=== PATIENT | female | born 1955 ===

== ENCOUNTER 2016-09-10 09:36 | Outpatient (CLI) | payer OTHER ==
--- NOTE | 2016-09-10 14:52 | Mammography Report ---
BILATERAL DIGITAL SCREENING MAMMOGRAM with CAD: 09/10/16 CLINICAL: Routine screening. COMPARISON:None available. However, a prior mammogram was apparently done at [facility] in 2014. FINDINGS: The breasts are heterogeneously dense, which may obscure small masses. Right asymmetries require comparison with the prior mammogram or additional imaging of the right breast. The left breast is negative. IMPRESSION: Right asymmetries requiring further evaluation. BI-RADS CATEGORY: 0 -- Additional Evaluation Required RECOMMENDATION: Comparison with a previous mammogram. We will attempt to obtain a prior mammogram from [facility] in 2014. If we do not obtain a prior mammogram for comparison within 30 days, a revised report will be issued recommending a recall for additional imaging of the right breast. Please be advised that the patient should not schedule an appointment for return until adequate time (at least 2 weeks) has passed for us to obtain the prior mammogram. ACR BI-RADS MAMMOGRAPHIC CODES: 0 = Needs additional imaging evaluation; 1 = Negative; 2 = Benign; 3 = Probably benign; 4 = Suspicious; 5 = Malignant; 6 = Known biopsy-proven malignancy COMMENT: 1. Dense breast tissue, i.e., adenosis, fibrocystic changes, etc., may obscure an underlying neoplasm. 2. Approximately 10% of cancers are not detected with mammography. 3. A negative mammography report should not delay biopsy if a clinically suspicious mass is present. COMMENT: Patient follow-up letters are generated via our [employer] application.
== END 2016-09-10 09:37 | disposition home or self-care (01) ==
LOC: SPVWC 09:36
PROVIDERS: ATTEND Family Medicine
DX: Z12.31 Encounter for screening mammogram for malignant neoplasm of breast (principal)
CPT/HCPCS: 77067; G0202

== ENCOUNTER 2016-10-22 09:49 | Outpatient (CLI) | payer OTHER ==
--- NOTE | 2016-10-22 11:15 | Ultrasound Report ---
RIGHT DIGITAL DIAGNOSTIC MAMMOGRAM and RIGHT BREAST ULTRASOUND: 10/22/16 09:49:00 CLINICAL: Recalled for asymmetry. COMPARISON:09/10/16 screening FINDINGS: Lateralmedial and spot compression MLO views were performed. Near complete effacement of the previously described asymmetry and a subtle persistent asymmetry of the lateral view. Ultrasound of the right breast (including all four quadrants and the retroareolar area) was performed. A tiny cystic cluster at 12 o'clock 2 cm from the nipple measures 7 x 2 x 6 mm. A benign cyst at 5 o'clock 2 cm from the nipple measures 9 x 9 x 5 mm. A few mildly dilated ducts. IMPRESSION: Benign cysts. BI-RADS CATEGORY: 2 - - Benign RECOMMENDATION: Routine mammographic screening in one year. ACR BI-RADS MAMMOGRAPHIC CODES: 0 = Needs additional imaging evaluation; 1 = Negative; 2 = Benign; 3 = Probably benign; 4 = Suspicious; 5 = Malignant; 6 = Known biopsy-proven malignancy COMMENT: 1. Dense breast tissue, i.e., adenosis, fibrocystic changes, etc., may obscure an underlying neoplasm. 2. Approximately 10% of cancers are not detected with mammography. 3. A negative mammography report should not delay biopsy if a clinically suspicious mass is present. COMMENT: Patient follow-up letters are generated via our [employer] application.
== END 2016-10-22 09:50 | disposition home or self-care (01) ==
LOC: SPVWC 09:49
PROVIDERS: ATTEND Family Medicine
DX: N60.01 Solitary cyst of right breast (principal)
CPT/HCPCS: 76641; G0206

== ENCOUNTER 2017-12-31 12:41 | Outpatient (CLI) | payer OTHER ==
--- NOTE | 2017-12-31 14:34 | Mammography Report ---
BONE DEXA:12/31/17 12:41:00 CLINICAL: Postmenopausal. No comparison. TECHNIQUE: Two site bone DEXA performed on an Hologic scanner. FINDINGS: The average BMD of the lumbar spine L1-L4 is 0.874g/cm squared with a T-score of -2.5 and a Z-score of 0.9. The average BMD of the left hip is 0.839g/cm squared with a T-score of -1.2 and a Z-score of 0.4. IMPRESSION: 1. WHO classification: Osteoporosis with high fracture risk based on lumbar spine measurements. 2. WHO classification: Osteopenia with increased fracture risk based on left hip measurements. RECOMMENDATION: Clinical correlation and routine screening. DEFINITIONS: BMD = Bone Mineral Density T-score = BMD related to mean peak bone mass of young adult (mean expressed in Standard Deviation) Z-score = Age matched BMD expressed in SD World Health Organization (WHO) Diagnostic Criteria Normal T-score > -1 SD Osteopenia T-score between -1 and -2.4 SD Osteoporosis T-score -2.5 SD or below NOTE: BMD is not the only risk factor for fracture. One should also consider factors such as the patient's age, risk of falling, previous osteoporotic fracture, family history of osteoporotic fractures, current smoker, and low body weight. Z-scores are not calculated if >80 years of age.
--- NOTE | 2017-12-31 14:35 | Mammography Report ---
BILATERAL DIGITAL SCREENING MAMMOGRAM with CAD: 12/31/17 12:41:00 CLINICAL: Routine screening. COMPARISON: 09/10/16 FINDINGS: There are bilateral scattered areas of fibroglandular density.No mass, architectural distortion or suspicious calcifications. IMPRESSION: No mammographic evidence of malignancy. BI-RADS CATEGORY: 1 -- Negative RECOMMENDATION: Routine mammographic screening in one year. COMMENT: Patient follow-up letters are generated by our [employer] application.
== END 2017-12-31 12:42 | disposition home or self-care (01) ==
LOC: SPVWC 12:41
PROVIDERS: ATTEND Family Medicine
DX: Z12.31 Encounter for screening mammogram for malignant neoplasm of breast (principal); M81.0 Age-related osteoporosis without current pathological fracture; M85.88 Other specified disorders of bone density and structure, other site; Z78.0 Asymptomatic menopausal state; F17.219 Nicotine dependence, cigarettes, with unspecified nicotine-induced disorders
CPT/HCPCS: 77067; 77080